=== PATIENT | male | born 1990 | race Caucasian/White ===

== ENCOUNTER 2017-12-14 11:44 | Outpatient (CLI) | END 2017-12-14 11:45 | disposition home or self-care (01) | LOC: FCC-LAB 11:44 | PROVIDERS: ATTEND Family Medicine | DX: Z11.3 Encounter for screening for infections with a predominantly sexual mode of transmission (principal) | CPT/HCPCS: 36415; 86592; 86701; 86803; 87800 ==

== ENCOUNTER 2018-06-29 14:32 | Outpatient (CLI) ==
--- NOTE | 2018-06-29 15:30 | DI ---
EXAM: Right hand three-view HISTORY: Pain in right hand COMPARISON: None FINDINGS: Mildly displaced fracture of the distal diaphysis of the fifth metacarpal with moderate vol ar angulation of the distal fracture fragment. . There is associated callus formation suggesting sub acute etiology. No dislocation. Mild soft tissue swelling laterally. IMPERSSION: Fracture of the fifth metacarpal that is likely subacute.
== END 2018-06-29 14:33 | disposition home or self-care (01) ==
LOC: RAD 14:32
PROVIDERS: ATTEND Family Medicine
DX: M79.641 Pain in right hand (principal)